=== PATIENT | female | born 1945 | race Caucasian/White ===

== ENCOUNTER 2019-02-21 07:40 | Outpatient (CLI) | payer MEDICARE, BC ==
--- NOTE | 2019-02-21 11:17 | MRI ---
MRI LUMBAR SPINE NONCONTRAST: HISTORY: Lumbar radiculopathy. COMPARISON: None. FINDINGS: Appropriate T1 marrow signal intensity of the lumbar vertebrae. Lumbar spine vertebral body height is maintained. No fracture. No significant STIR hyperintensity to suggest vertebral body edema or ligamentous injury. Appropriate signal intensity of the paraspinal muscles. Appropriate signal intensity of the solid org ans. Conus medullaris terminates at the L1-L2 disc space. Spondylolisthesis: 14 mm of anterolisthesis of L5 upon S1. Associated spondylolysis. T12-L1:No significant central canal stenosis or significant neural foraminal narrowing. L1-L2:No significant central canal stenosis or significant neural foraminal narrowing. L2-L3:No significant central canal stenosis or significant neural foraminal narrowing. L3-L4:Disc desiccation with minimal loss of disc space height. Minimal left and right subarticular di sc bulges. There is mass effect without obscuration of the traversing left L4 nerve root. No significant central canal stenosis. Mild ligamentum flavum thickening and facet hypertrophy. Bilatera lly, neural foramina are patent. L4-L5:Disc desiccation without significant loss of disc space height. Broad-based disc bulge, ligamen t flavum thickening and facet hypertrophy result in mild central canal stenosis. There is fluid in both facet joints. Right neural foramen is patent. Mild left neural foraminal narrowing. L5-S1:No significant posterior disc abnormality. Mild central canal stenosis. Bilateral facet hypertr ophy. Severe bilateral foraminal narrowing predominantly due to spondylolisthesis. Trace amount of fluid in the residual disc space, of uncertain significance. IMPRESSION: 1. Grade 2 anterolisthesis of L5 upon S1. Associated spondylolysis. 2. Severe bilateral neural foraminal narrowing at L5-S1. Transcribed Date/Time: 02/21/2019 12:35 PM
--- NOTE | 2019-02-21 11:42 | MRI ---
MRI Upper Ext Jt Rt WO Con History: M 27.511 right shoulder pain Comparison: None. Findings: Biceps: moderate extra articular biceps tenosynovitis with intra-articular interstitial tearing. Labrum: There is tear of the posterior inferior labrum with small para labral ganglion pseudocyst for mation. Mild blunting free edge superior labrum. High-grade partial articular surface tear supraspinatus tendon old avulsion inferior one half fibers at the footprint retracted to the mid humeral head. There is interstitial delamination extending into the infraspinatus tendon without myotendinous junction cysts. Moderate tendinosis and interstiti al delamination of the craniad fibers subscapularis. Bones: Moderate degenerative disease acromioclavicular joint. Type I acromion. No significant subacro mial narrowing. Erosions of the greater tuberosity at the supraspinous tendon insertion. Normal glenoid version. Soft tissues: Moderate subacromial/subdeltoid bursa effusion. Normal appearance the rotator cuff inte rval. [place] III pouch is normal. Muscles: Mild residual delamination along the myotendinous junction infraspinatus. No muscle atrophy. Impression: 1. Partial articular supraspinatus tendon avulsion from the footprint involving the undersurface one half fibers retracted to the mid humeral head. There is extension into the anterior fibers infraspinatus tendon with interstitial delamination and myotendinous junction cysts. 2. No muscle atrophy. 3. Moderate subacromial/subdeltoid bursa effusion. 4. Moderate extra articular and intra-articular tendinosis biceps tendon with intra-articular interst itial delamination. 5. Small free edge tear posterior inferior labrum with adjacent ganglion pseudocyst.
== END 2019-02-21 07:41 | disposition home or self-care (01) ==
LOC: MRI 07:40
PROVIDERS: ATTEND Orthopaedic Surgery
DX: M54.16 Radiculopathy, lumbar region (principal); M67.411 Ganglion, right shoulder; M25.411 Effusion, right shoulder; M43.07 Spondylolysis, lumbosacral region; M48.07 Spinal stenosis, lumbosacral region
CPT/HCPCS: 72148